=== PATIENT | female | born 1995 | race Caucasian/White ===

== ENCOUNTER 2024-05-10 05:17 | Inpatient (IN) | payer BC, MEDICAID ==
[~2024-05-10 05:17] MED LIST: Oxytocin/0.9 % Sodium Chloride 30 UNIT/500 ML BAG IV SCH; Sodium Chloride 0.9% 10 ML Syringe FLUSH PRN; ceFAZolin 2 GM in Sodium Chloride 0.9% 50 ML IV ONE
[2024-05-10 05:52] LABS: BASOPHILS PERCENT AUTO 0.2 % (0.0-1.0); EOSINOPHILS ABSOLUTE AUTO 0.1 K/mm3 (0.0-0.4); EOSINOPHILS PERCENT AUTO 0.9 % (0.0-6.0); HEMATOCRIT 38.4 % (37.0-47.0); HEMOGLOBIN 13.1 gm/dl (12.0-16.0); IMMATURE GRAN ABSOLUTE AUTO 0.06 K/mm3 (0.00-0.05); IMMATURE GRAN PERCENT AUTO 0.7 % (0.0-0.4); LYMPHOCYTES ABSOLUTE AUTO 2.2 K/mm3 (1.0-4.8); LYMPHOCYTES PERCENT AUTO 25.1 % (24.0-44.0); MEAN CORPUSCULAR HEMOGLOBIN 32.6 pg (28.0-32.0); MEAN CORPUSCULAR HGB CONC 34.1 g/dl (32.0-36.0); MEAN CORPUSCULAR VOLUME 95.5 fl (83.0-99.0); MEAN PLATELET VOLUME 12.9 fl (9.4-12.3); MONOCYTES ABSOLUTE AUTO 0.8 K/mm3 (0.0-0.8); NEUTROPHILS ABSOLUTE AUTO 5.7 K/mm3 (1.8-7.7); NEUTROPHILS PERCENT AUTO 64.1 % (41.0-71.0); PLATELET COUNT,PLT 139 K/mm3 (150-400); RED BLOOD CELL COUNT 4.02 M/mm3 (4.10-5.30); WHITE BLOOD CELL COUNT,WBC 8.85 K/mm3 (3.9-11.3)
[2024-05-10] MEDS: Lactated Ringers 1,000 ML IV SCH (06:03)
[2024-05-10] MEDS: Citric Acid/Sodium Citrate Solution 30 ML Cup PO ONE (06:29)
[2024-05-10] MEDS: Metoclopramide 10 MG/2 ML SDV IVPUSH ONE (06:29)
[2024-05-10] MEDS ORDERED: Meperidine 50 MG/ML Vial IVPUSH PRN (06:35)
[2024-05-10] MEDS ORDERED: fentaNYL 100 MCG/2 ML SDV IVPUSH PRN (06:35)
[2024-05-10] MEDS ORDERED: Sodium Chloride 0.9% 10 ML Syringe FLUSH PRN (06:35)
[2024-05-10] MEDS ORDERED: Ondansetron 4 MG/2 ML SDV IVPUSH PRN (06:35)
[2024-05-10] MEDS ORDERED: diphenhydrAMINE 50 MG/ML SDV IVPUSH PRN ×2 (06:35→08:43)
[2024-05-10] MEDS ORDERED: Morphine PF 10 MG/10 ML SDV ONE (06:39)
[2024-05-10] MEDS ORDERED: ePHEDrine 50 MG/ML SDV ONE (06:41)
[2024-05-10] MEDS ORDERED: Lactated Ringers 1,000 ML IV SCH (06:45)
[2024-05-10 07:23] LABS: SLIDE REVIEW ABNORMAL SMEAR
[2024-05-10] MEDS ORDERED: Bupivacaine 0.75%/D5W 2 ML Amp ONE (07:38)
[2024-05-10] MEDS ORDERED: ceFAZolin 2 GM Vial ONE (08:00)
[2024-05-10] MEDS ORDERED: Ketorolac 30 MG/ML SDV ONE (08:22)
[2024-05-10] MEDS ORDERED: ePHEDrine 50 MG/ML SDV IVPUSH PRN (08:43)
[2024-05-10] MEDS ORDERED: Naloxone 0.4 MG/ML SDV IVPUSH PRN (08:43)
[2024-05-10] MEDS ORDERED: Ibuprofen 600 MG Tab PO SCH (08:45)
[2024-05-10] MEDS ORDERED: Acetaminophen 325 MG Tab PO SCH (08:45)
[2024-05-10] MEDS ORDERED: Sodium Chloride 0.9% 10 ML Syringe FLUSH SCH (09:00)
[2024-05-10] MEDS: Sodium Chloride 0.9% 10 ML Syringe FLUSH SCH (11:08)
[2024-05-10] MEDS: Acetaminophen 325 MG Tab PO SCH (12:37)
[2024-05-10] MEDS: Dextrose 5%-Lactated Ringers 1,000 ML IV SCH (12:39)
[2024-05-10] MEDS: Ibuprofen 600 MG Tab PO SCH (14:42)
[2024-05-10] MEDS: Sennosides 8.6 MG Tab PO SCH (20:43)
[2024-05-11] MEDS: Acetaminophen 325 MG Tab PO SCH (01:15)
[2024-05-11 05:32] LABS: HEMATOCRIT 37.2 % (37.0-47.0); HEMOGLOBIN 12.7 gm/dl (12.0-16.0); MEAN CORPUSCULAR HEMOGLOBIN 32.9 pg (28.0-32.0); MEAN CORPUSCULAR HGB CONC 34.1 g/dl (32.0-36.0); MEAN CORPUSCULAR VOLUME 96.4 fl (83.0-99.0); MEAN PLATELET VOLUME 12.9 fl (9.4-12.3); PLATELET COUNT,PLT 139 K/mm3 (150-400); RED BLOOD CELL COUNT 3.86 M/mm3 (4.10-5.30); WHITE BLOOD CELL COUNT,WBC 12.07 K/mm3 (3.9-11.3)
[2024-05-11] MEDS ORDERED: Lactated Ringers 1,000 ML IV ONE (08:00)
[2024-05-11] MEDS: oxyCODONE 5 MG Tab PO PRN (14:17)
[2024-05-12] MEDS: diphenhydrAMINE 25 MG Cap PO ONE (00:14)
[2024-05-12] MEDS: Hydrocortisone 1% Crm 30 GM Tube TOP PRN (17:18)
== END 2024-05-12 17:58 | disposition home or self-care (01) | DRG 788 ==
LOC: JD.OB 05:17
PROVIDERS: ADMIT Obstetrics & Gynecology; ATTEND Obstetrics & Gynecology
PROC: 10D00Z1 Extraction of Products of Conception, Low, Open Approach (ICD-10-PCS; principal; 2024-05-10 07:30)
DX: O99.892 Other specified diseases and conditions complicating childbirth (principal); G56.00 Carpal tunnel syndrome, unspecified upper limb; H53.002 Unspecified amblyopia, left eye; U07.0 Vaping-related disorder; Z79.899 Other long term (current) drug therapy; Z3A.39 39 weeks gestation of pregnancy; Z37.0 Single live birth; R21 Rash and other nonspecific skin eruption
CPT/HCPCS: 01961; 36415; 59025; 85025; 85027; 86592; 86850; 86900; 86901; 94762; A9270-GY; J0690; J1885; J2274; J2765; J3490; J7120; J7121; J7999

== ENCOUNTER 2024-08-25 14:37 | Emergency (ER) | payer MEDICAID ==
[2024-08-25 15:50] LABS: BASOPHILS ABSOLUTE AUTO 0.0 K/mm3 (0.0-0.2); BASOPHILS PERCENT AUTO 0.4 % (0.0-1.0); EOSINOPHILS ABSOLUTE AUTO 0.1 K/mm3 (0.0-0.4); EOSINOPHILS PERCENT AUTO 1.1 % (0.0-6.0); IMMATURE GRAN ABSOLUTE AUTO 0.01 K/mm3 (0.00-0.05); IMMATURE GRAN PERCENT AUTO 0.2 % (0.0-0.4); LYMPHOCYTES ABSOLUTE AUTO 2.1 K/mm3 (1.0-4.8); LYMPHOCYTES PERCENT AUTO 37.7 % (24.0-44.0); MEAN PLATELET VOLUME 11.7 fl (9.4-12.3); MONOCYTES ABSOLUTE AUTO 0.6 K/mm3 (0.0-0.8); MONOCYTES PERCENT AUTO 9.9 % (0.0-8.0); NEUTROPHILS ABSOLUTE AUTO 2.8 K/mm3 (1.8-7.7); NEUTROPHILS PERCENT AUTO 50.7 % (41.0-71.0); NRBC ABSOLUTE 0.00 (0.00-0.02); NRBC PERCENT 0.0 % (0.0-0.2); PLATELET COUNT,PLT 196 K/mm3 (150-400); RED BLOOD CELL COUNT 4.42 M/mm3 (4.10-5.30); WHITE BLOOD CELL COUNT,WBC 5.57 K/mm3 (3.9-11.3)
[2024-08-25 16:28] LABS: A/G RATIO 1.1 (1-2); ALANINE AMINOTRANSFERASE,ALT 28 U/L (14-59); ASPARTATE AMNIOTRANSFERASE,AST 19 U/L (15-37); BILIRUBIN TOTAL 0.9 mg/dL (0.2-1.0); BLOOD UREA NITROGEN,BUN 11 mg/dL (7-18); CARBON DIOXIDE,CO2 28 mEq/L (21-32); CHLORIDE,CL 104 mEq/L (98-107); CREATININE 0.8 mg/dL (0.55-1.02); ESTIMATED GFR 104 mL/min (>60); GLUCOSE RANDOM 83 mg/dL (70-99); POTASSIUM,K 4.2 mEq/L (3.5-5.1); PROTEIN TOTAL,TP 7.6 g/dl (6.4-8.2); SODIUM,NA 138 mEq/L (136-145); TROPONIN I HIGH SENSITIVITY < 4 pg/mL (<=51)
[2024-08-25 16:49] LABS: HCG QUANTITATIVE < 1.0 mIU/mL
== END 2024-08-25 17:40 | disposition home or self-care (01) ==
LOC: JD.ED 14:37
DX: H53.002 Unspecified amblyopia, left eye (principal); R20.2 Paresthesia of skin; Z63.79 Other stressful life events affecting family and household; Z88.8 Allergy status to other drugs, medicaments and biological substances; Z79.899 Other long term (current) drug therapy
CPT/HCPCS: 36415; 70450; 80053; 81025; 84484; 84702; 85025; 93005; 99284; A9270